=== PATIENT | female | born 1980 | race Caucasian/White ===

== ENCOUNTER 2016-11-22 08:00 | Outpatient (CLI) | payer OTHER | END 2016-11-22 23:59 | DX: N93.9 Abnormal uterine and vaginal bleeding, unspecified (principal); R63.5 Abnormal weight gain ==

== ENCOUNTER 2016-11-29 10:40 | Outpatient (CLI) | payer OTHER | END 2016-11-29 10:41 | disposition home or self-care (01) | DX: M54.12 Radiculopathy, cervical region (principal) ==

== ENCOUNTER 2017-02-04 07:43 | Outpatient (CLI) | payer OTHER ==
--- NOTE | 2017-02-04 10:16 | MRI Report ---
EXAM: MRI CERVICAL SPINE WITHOUT CONTRAST EXAM DATE: 02/04/2017 08:23 AM. CLINICAL HISTORY: NECK PAIN. COMPARISONS: CERVICAL SPINE SERIES 10/20/2009. TECHNIQUE: Multiplanar, multisequence T1-weighted and fluid-sensitive sequences of the cervical spine without contrast. Other: None. FINDINGS: Neurologic Structures: The visualized posterior fossa structures are unremarkable. No Chiari malforma tion. No signal or contour abnormality in the visualized spinal cord. No focal mass, cord compression , syrinx or abnormal vasculature. Alignment: Straightening of the cervical curve, nonspecific, unchanged. No scoliosis or spondylolisth esis. Bone Marrow: No gross fractures or bone lesions. No marrow edema. Interspace Levels/Facets: Disk dehydration C2-C3 and C3-C4. No significant loss of disk height. C1-C2: Unremarkable. No disk herniation, disk bulge, spinal stenosis, foraminal narrowing. Facets are normal. C2-C3: Unremarkable. No disk herniation, disk bulge, spinal stenosis, foraminal narrowing. Facets are normal. C3-C4: Unremarkable. No disk herniation, disk bulge, spinal stenosis, foraminal narrowing. Facets are normal. C4-C5: Unremarkable. No disk herniation, disk bulge, spinal stenosis, foraminal narrowing. Facets are normal. C5-C6: Unremarkable. No disk herniation, disk bulge, spinal stenosis, foraminal narrowing. Facets are normal. C6-C7: Unremarkable. No disk herniation, disk bulge, spinal stenosis, foraminal narrowing. Facets are normal. C7-T1: Unremarkable. No disk herniation, disk bulge, spinal stenosis, foraminal narrowing. Facets are normal. Musculature: Normal. No edema or fatty atrophy. Other: The paravertebral and prevertebral soft tissues are normal. IMPRESSION: 1. No definite or significant abnormality is demonstrated to explain the clinical symptoms. 2. Normal cervical cord. 3. No disk herniation, disk bulge, spinal stenosis, foraminal narrowing or nerve impingement. [facility] Referring Provider Line: [phone] SITE ID: [id number]
== END 2017-02-04 07:44 | disposition home or self-care (01) ==
LOC: DI 07:43
PROVIDERS: ATTEND Physical Medicine & Rehabilitation
DX: M54.2 Cervicalgia (principal); R20.2 Paresthesia of skin
CPT/HCPCS: 72141

== ENCOUNTER 2017-02-28 08:09 | Outpatient (CLI) | payer OTHER ==
--- NOTE | 2017-02-28 12:52 | Ultrasound Report ---
PELVIC ULTRASOUND: 02/28/2017 CLINICAL INDICATION: Abnormal bleeding, palpable left adnexal lesion on physical exam. TECHNIQUE: Transabdominal pelvic ultrasound performed for global evaluation. Transvaginal pelvic ultrasound performed for detailed evaluation. Real-time scanning performed and static images obtained. FINDINGS: The uterus is anteverted, measuring 11.6 x 4.9 x 4.5 cm. The endometrial echo complex measures 11 mm. A left Essure device is noted. Per the patient, the right-sided device could not be placed secondary to adhesions. The right ovary is unremarkable, measuring 4.1 x 1.9 x 1.8 cm. The left ovary is unremarkable, measuring 2.9 x 1.4 x 1.1 cm. No adnexal mass or free fluid is appreciated. IMPRESSION: NORMAL PELVIC ULTRASOUND. LEFT ESSURE DEVICE NOTED. JOB #: [id number] EXT JOB #: [id number] ALYSON
== END 2017-02-28 08:10 | disposition home or self-care (01) ==
LOC: DI 08:09
PROVIDERS: ATTEND Physician Assistant Medical
DX: N93.9 Abnormal uterine and vaginal bleeding, unspecified (principal); Z97.5 Presence of (intrauterine) contraceptive device
CPT/HCPCS: 76830; 76856

== ENCOUNTER 2018-04-29 10:33 | Outpatient (CLI) | payer BC ==
[2018-04-29 18:18] LABS: BASOPHILS % (AUTO) 0.7 %; EOSINOPHILS % (AUTO) 0.8 %; HGB - HEMOGLOBIN 14.3 g/dL (12.0-16.0); LYMPHOCYTES # (AUTO) 1.4 10^3/uL (1.5-3.5); LYMPHOCYTES % (AUTO) 23.6 %; MEAN CORPUSCULAR HEMOGLOBIN 32.5 pg (27.0-31.0); MEAN CORPUSCULAR HGB CONC 34.3 g/dL (32.0-36.0); MEAN CORPUSCULAR VOLUME 94.9 fL (81.0-99.0); MEAN PLATELET VOLUME 9.3 fL (7.9-10.8); MONOCYTES # (AUTO) 0.5 10^3/uL (0.0-1.0); NEUTROPHILS % (AUTO) 66.9 %; PLT - PLATELET COUNT 245 10^3/uL (130-450); RED BLOOD COUNT 4.39 10^6/uL (4.20-5.40); RED CELL DISTRIBUTION WIDTH 12.8 % (12.0-15.0); WHITE BLOOD COUNT 5.9 x10^3/uL (4.8-10.8)
[2018-04-29 18:50] LABS: ALBUMIN 4.3 g/dL (3.2-5.5); ALBUMIN/GLOBULIN RATIO 1.7 (1.0-2.2); BILIRUBIN,TOTAL 0.7 mg/dL (0.2-1.0); CALCIUM 9.1 mg/dL (8.5-10.3); CREATININE 0.7 mg/dL (0.4-1.0); TOTAL PROTEIN 6.9 g/dL (6.7-8.2)
== END 2018-04-29 10:34 | disposition home or self-care (01) ==
LOC: LAB.F 10:33
PROVIDERS: ATTEND Physician Assistant Medical
DX: Z00.00 Encounter for general adult medical examination without abnormal findings (principal)
CPT/HCPCS: 36415; 80053; 84443; 85025

== ENCOUNTER 2018-05-02 14:33 | Outpatient (CLI) | payer BC ==
--- NOTE | 2018-05-02 16:14 | Ultrasound Report ---
Reason: CERVICAL LYMPHADENOPATHY LEFT Procedure Date: 05/02/2018 Accession Number: [id number] / [id number] Procedure: US - Head or Neck Soft Tissue CPT Code: FULL RESULT: EXAM: SOFT TISSUE ULTRASOUND OF THE NECK. EXAM DATE: 05/02/2018 03:09 PM. CLINICAL HISTORY: Cervical lymphadenopathy, left. COMPARISON: None. TECHNIQUE: Real time sonographic imaging of the thyroid was performed by the secondary set up man. Multiple fundraising sale representative static images were saved for review. FINDINGS: The palpable area of the left neck is interrogated by ultrasound and normal soft tissues are seen with prominent lymph nodes which measure up to 1.2 x 0.4 x 0.7 cm. Color Doppler demonstrates central flow within the largest lymph node and preserved fatty hilum. IMPRESSION: Normal-appearing lymph nodes which measure up to 1.2 cm in long axis. [facility]
== END 2018-05-02 14:34 | disposition home or self-care (01) ==
LOC: DI 14:33
PROVIDERS: ATTEND Physician Assistant Medical
DX: R59.0 Localized enlarged lymph nodes (principal)
CPT/HCPCS: 76536

== ENCOUNTER 2018-05-15 12:06 | Outpatient (CLI) | payer BC ==
--- NOTE | 2018-05-16 10:07 | Mammography Report ---
Reason: SCREENING MAMMO Procedure Date: 05/15/2018 Accession Number: [id number] / [id number] Procedure: [facility] - Screening Mammo w/Conor CPT Code: FULL RESULT: EXAM: Screening Mammo w/Conor DATE: 05/15/2018 12:25 PM CLINICAL HISTORY: SCREENING MAMMO TECHNIQUE: EXAM: Screening Mammo w/Conor DATE: 05/15/2018 12:25 PM CLINICAL HISTORY: Screening mammogram. TECHNIQUE: Bilateral CC and MLO views were obtained. COMPARISON: 12/19/2012 FINDINGS: The breast tissue is extremely dense. There is no significant interval change. No suspicious masses, clustered microcalcifications, or regions of architectural distortion are identified. IMPRESSION: Negative examination RECOMMENDATION: Routine annual screening unless otherwise clinically indicated. BIRADS CATEGORY 1: Negative STANDARD QUALIFYING STATEMENTS: 1. This examination was not reviewed with the aid of Computer-Aided Detection (CAD). 2. A negative or benign imaging report should not delay biopsy if clinically suspicious findings are present. Consider surgical consultation if warrented. More than 5% of cancers are not identified by imaging. 3. Dense breasts may obscure an underlying neoplasm. 4. This examination was reviewed with the aid of 3D breast imaging (tomosynthesis). COMPARISON: None FINDINGS: IMPRESSION:
== END 2018-05-15 12:07 | disposition home or self-care (01) ==
LOC: DI 12:06
DX: Z12.31 Encounter for screening mammogram for malignant neoplasm of breast (principal)
CPT/HCPCS: 77063; 77067

== ENCOUNTER 2019-05-07 08:00 | Outpatient (CLI) | payer BC ==
[2019-05-07 10:26] LABS: BASOPHILS % (AUTO) 0.7 %; EOSINOPHILS # (AUTO) 0.1 10^3/uL (0.0-0.7); EOSINOPHILS % (AUTO) 0.8 %; HGB - HEMOGLOBIN 14.4 g/dL (12.0-16.0); LYMPHOCYTES # (AUTO) 0.9 10^3/uL (1.5-3.5); LYMPHOCYTES % (AUTO) 14.9 %; MEAN CORPUSCULAR HEMOGLOBIN 32.3 pg (27.0-31.0); MEAN CORPUSCULAR VOLUME 95.1 fL (81.0-99.0); MEAN PLATELET VOLUME 11.1 fL (7.9-10.8); MONOCYTES # (AUTO) 0.5 10^3/uL (0.0-1.0); NEUTROPHILS # (AUTO) 4.4 10^3/uL (1.5-6.6); NEUTROPHILS % (AUTO) 74.3 %; PLT - PLATELET COUNT 234 10^3/uL (130-450); RED BLOOD COUNT 4.46 10^6/uL (4.20-5.40); RED CELL DISTRIBUTION WIDTH 12.5 % (12.0-15.0); WHITE BLOOD COUNT 5.9 x10^3/uL (4.8-10.8)
[2019-05-07 10:31] LABS: ALBUMIN 4.5 g/dL (3.2-5.5); ALBUMIN/GLOBULIN RATIO 1.9 (1.0-2.2); ALKALINE PHOSPHATASE 33 IU/L (42-121); ALT ALANINE AMINOTRANSFERASE 20 IU/L (10-60); AST ASPARTATE AMINOTRANSFERASE 13 IU/L (10-42); BILIRUBIN,TOTAL 1.1 mg/dL (0.2-1.0); BUN - BLOOD UREA NITROGEN 16 mg/dL (6-20); CALCIUM 8.9 mg/dL (8.5-10.3); CARBON DIOXIDE - CO2 26 mmol/L (21-32); CHLORIDE 102 mmol/L (101-111); CHOL/HDL RATIO 3.4 (<4.4); CHOLESTEROL 205 mg/dL; CREATININE 0.8 mg/dL (0.4-1.0); GFR - MDRD 79 (>89); GLUCOSE 89 mg/dL (70-100); HDL CHOLESTEROL 60 mg/dL; LDL CHOLESTEROL,CALCULATED 136 mg/dL; LDL/HDL RATIO 2.3 (<4.4); SODIUM 137 mmol/L (135-145); TOTAL PROTEIN 6.9 g/dL (6.7-8.2); VLDL CHOLESTEROL 9 mg/dL
== END 2019-05-07 08:01 | disposition home or self-care (01) ==
LOC: LAB.S 08:00
PROVIDERS: ATTEND Physician Assistant Medical
DX: Z13.228 Encounter for screening for other metabolic disorders (principal); Z13.220 Encounter for screening for lipoid disorders; Z86.39 Personal history of other endocrine, nutritional and metabolic disease; N93.9 Abnormal uterine and vaginal bleeding, unspecified
CPT/HCPCS: 36415; 80053; 80061; 83721; 84443; 85025

== ENCOUNTER 2019-05-21 09:25 | Outpatient (CLI) | payer BC ==
--- NOTE | 2019-05-21 19:51 | Ultrasound Report ---
Reason: MENSTRUAL BLEEDING ABN Procedure Date: 05/21/2019 Accession Number: [id number] / [id number] Procedure: US - Pelvic w/Transvaginal CPT Code: FULL RESULT: EXAM: PELVIC ULTRASOUND EXAM DATE: 05/21/2019 10:30 AM. CLINICAL HISTORY: MENSTRUAL BLEEDING ABN. LMP 04/29/2019 COMPARISON: PELVIC W/TRANSVAGINAL 02/28/2017 8:45 AM. TECHNIQUE: Realtime transabdominal pelvic scan performed to identify the uterus and adnexa and as an overview of other pelvic structures, followed by transvaginal scan to provide greater detail of the uterus and adnexa, with static image documentation. FINDINGS: Limited by uterine position. Uterus: 12.4 x 4.3 x 5.4 cm, volume 150 cc. Anteverted position. Normal overall size and echotexture. Masses: None. Endometrium: 8.9 mm. Normal. Cervix: Unremarkable. Right Ovary: 2.8 x 1.9 x 2.6 cm, volume 7.2 cc. Normal echotexture and blood flow. Left Ovary: 2.8 x 2.2 x 2.3 cm, volume 7.4 cc. Normal echotexture and blood flow. Free Fluid: None. Other: Left Essure device. IMPRESSION: Normal endometrial thickness. Left Essure device. No acute or significant findings. [facility]
== END 2019-05-21 09:26 | disposition home or self-care (01) ==
LOC: DI 09:25
PROVIDERS: ATTEND Physician Assistant Medical
DX: N93.9 Abnormal uterine and vaginal bleeding, unspecified (principal); Z97.5 Presence of (intrauterine) contraceptive device
CPT/HCPCS: 76830; 76856

== ENCOUNTER 2019-05-28 09:55 | Outpatient (CLI) | payer BC ==
--- NOTE | 2019-05-29 12:58 | Mammography Report ---
Reason: ROUTINE MAMMO Procedure Date: 05/28/2019 Accession Number: [id number] / [id number] Procedure: [facility] - Screening Mammo Dig Bilat CPT Code: Final Report FULL RESULT: EXAM: Screening Mammo Dig Bilat DATE: 05/28/2019 10:12 AM CLINICAL HISTORY: Routine screening TECHNIQUE: (B) - Bilateral CC and MLO views were obtained. COMPARISON: 05/15/2018, 12/19/2012 PARENCHYMAL PATTERN: (VD) - The breasts demonstrate extremely dense parenchyma bilaterally, limiting the sensitivity of mammography. FINDINGS: No significant interval change. There are no suspicious masses, calcifications, or areas of distortion. IMPRESSION: Negative examination. BI-RADS category 1. RECOMMENDATION: (ANNUAL) - Recommend routine annual screening mammography. BI-RADS CATEGORY: (1) - Negative. STANDARD QUALIFYING STATEMENTS: 1. This examination was not reviewed with the aid of Computer-Aided Detection (CAD). 2. A negative or benign imaging report should not preclude biopsy if clinically suspicious findings are present. 3. Dense breasts may obscure an underlying neoplasm. 4. This examination was reviewed without the aid of 3D breast imaging (tomosynthesis).
== END 2019-05-28 09:56 | disposition home or self-care (01) ==
LOC: DI.S 09:55
PROVIDERS: ATTEND Physician Assistant Medical
DX: Z12.31 Encounter for screening mammogram for malignant neoplasm of breast (principal)
CPT/HCPCS: 77067

== ENCOUNTER 2020-04-28 12:15 | Outpatient (CLI) | payer BC ==
[2020-04-28 15:09] LABS: BASOPHILS % (AUTO) 0.7 %; EOSINOPHILS % (AUTO) 0.7 %; HGB - HEMOGLOBIN 14.9 g/dL (12.0-16.0); LYMPHOCYTES # (AUTO) 1.3 10^3/uL (1.5-3.5); LYMPHOCYTES % (AUTO) 21.5 %; MEAN CORPUSCULAR HEMOGLOBIN 31.9 pg (27.0-31.0); MEAN CORPUSCULAR HGB CONC 33.6 g/dL (32.0-36.0); MEAN CORPUSCULAR VOLUME 95.1 fL (81.0-99.0); MEAN PLATELET VOLUME 11.1 fL (7.9-10.8); MONOCYTES # (AUTO) 0.4 10^3/uL (0.0-1.0); MONOCYTES % (AUTO) 6.2 %; NEUTROPHILS # (AUTO) 4.3 10^3/uL (1.5-6.6); NEUTROPHILS % (AUTO) 70.4 %; PLT - PLATELET COUNT 232 10^3/uL (130-450); RED BLOOD COUNT 4.67 10^6/uL (4.20-5.40); RED CELL DISTRIBUTION WIDTH 12.4 % (12.0-15.0); WHITE BLOOD COUNT 6.1 x10^3/uL (4.8-10.8)
[2020-04-28 15:37] LABS: ALBUMIN 4.7 g/dL (3.2-5.5); ALBUMIN/GLOBULIN RATIO 1.7 (1.0-2.2); ALKALINE PHOSPHATASE 41 IU/L (42-121); ALT ALANINE AMINOTRANSFERASE 20 IU/L (10-60); AST ASPARTATE AMINOTRANSFERASE 12 IU/L (10-42); BILIRUBIN,TOTAL 1.3 mg/dL (0.2-1.0); BUN - BLOOD UREA NITROGEN 15 mg/dL (6-20); CALCIUM 9.4 mg/dL (8.5-10.3); CARBON DIOXIDE - CO2 25 mmol/L (21-32); CHLORIDE 104 mmol/L (101-111); CHOL/HDL RATIO 3.9 (<4.4); CHOLESTEROL 244 mg/dL; CREATININE 0.8 mg/dL (0.4-1.0); GLUCOSE 91 mg/dL (70-100); HDL CHOLESTEROL 63 mg/dL; LDL CHOLESTEROL,CALCULATED 170 mg/dL; LDL/HDL RATIO 2.7 (<4.4); SODIUM 138 mmol/L (135-145); TOTAL PROTEIN 7.4 g/dL (6.7-8.2); VLDL CHOLESTEROL 11 mg/dL
== END 2020-04-28 12:16 | disposition home or self-care (01) ==
LOC: LAB.S 12:15
PROVIDERS: ATTEND Registered Nurse
DX: N60.19 Diffuse cystic mastopathy of unspecified breast (principal); N93.9 Abnormal uterine and vaginal bleeding, unspecified; J45.990 Exercise induced bronchospasm; K21.9 Gastro-esophageal reflux disease without esophagitis; B00.9 Herpesviral infection, unspecified; F41.9 Anxiety disorder, unspecified
CPT/HCPCS: 36415; 80053; 80061; 83721; 84443; 85025